=== PATIENT | female | born 1955 | race Hispanic/Latino ===

== ENCOUNTER → 2020-04-14 | Outpatient (CLI) | payer OTHER | END | disposition home or self-care (01) | LOC: OIH 09:15 | PROVIDERS: ATTEND Family Medicine | DX: M47.817 Spondylosis without myelopathy or radiculopathy, lumbosacral region (principal) | CPT/HCPCS: 72100 ==

== ENCOUNTER 2023-02-10 16:37 | Emergency (ER) | payer OTHER ==
[~2023-02-10] VITALS: Ht 160 cm; Wt 83.9 kg
[2023-02-10 16:39] VITALS: BP 150/74; PULSE 66; RESP 16
[2023-02-10] MEDS ORDERED: KETO10TA2 PO (18:14)
[2023-02-10] MEDS ORDERED: CYCL-309 PO (18:14)
[2023-02-10] MEDS ORDERED: LIDO1ADH82 TP (18:14)
[2023-02-10] MEDS ORDERED: CYCLOBENZAPRINE HCL 10 MG TABLET PO ONE (18:30)
[2023-02-10] MEDS ORDERED: LIDOCAINE 5% TOPICAL PATCH TP ONE (18:30)
[2023-02-10] MEDS ORDERED: KETOROLAC 15MG/ML VIAL (15MG/ML) IM ONE (18:30)
== END 2023-02-10 19:44 | disposition home or self-care (01) ==
LOC: EDH 16:37
DX: M62.830 Muscle spasm of back (principal); M62.838 Other muscle spasm; E11.9 Type 2 diabetes mellitus without complications; E78.00 Pure hypercholesterolemia, unspecified; I10 Essential (primary) hypertension